=== PATIENT | female | born 1990 | race Caucasian/White ===

== ENCOUNTER → 2017-03-24 | Outpatient (CLI) | payer BC, OTHER | LOC: M SMT 08:01 | DX: Z36.87 Encounter for antenatal screening for uncertain dates (principal); Z3A.08 8 weeks gestation of pregnancy | CPT/HCPCS: 76801 ==

== ENCOUNTER → 2017-06-11 | Outpatient (CLI) | payer BC, OTHER | LOC: M SMT 13:09 | DX: Z34.82 Encounter for supervision of other normal pregnancy, second trimester (principal); Z3A.19 19 weeks gestation of pregnancy ==

== ENCOUNTER → 2018-06-15 | Outpatient (REF) | payer OTHER | LOC: M LAB LCGH 10:41 | PROVIDERS: ATTEND Surgery | DX: K80.18 Calculus of gallbladder with other cholecystitis without obstruction (principal) ==

== ENCOUNTER → 2018-09-22 | Outpatient (REF) | payer OTHER | LOC: M LAB REF 12:20 | PROVIDERS: ATTEND Physician Assistant | DX: J02.9 Acute pharyngitis, unspecified (principal) ==